=== PATIENT | male | born 1990 | race Caucasian/White ===

== ENCOUNTER 2024-11-15 17:25 | Observation (INO) | payer OTHER ==
[~2024-11-15] VITALS: Ht 170.2 cm; Wt 71.7 kg
[2024-11-15 18:02] LABS: BASOPHILS ABSOLUTE AUTO 0.07 K/mm3 (0.00-0.23); BASOPHILS PERCENT AUTO 1 % (0-2); EOSINOPHILS ABSOLUTE AUTO 0.39 K/mm3 (0.00-0.68); EOSINOPHILS PERCENT AUTO 4 % (0-6); IMMATURE GRAN ABSOLUTE AUTO 0.02 K/mm3 (0.00-0.10); IMMATURE GRAN PERCENT AUTO 0 % (0-1); LYMPHOCYTES ABSOLUTE AUTO 2.97 K/mm3 (0.84-5.20); LYMPHOCYTES PERCENT AUTO 31 % (21-46); MONOCYTES ABSOLUTE AUTO 0.66 K/mm3 (0.16-1.47); MONOCYTES PERCENT AUTO 7 % (4-13); Mean Corpuscular HGB 29.2 pg (26.0-34.0); Mean Corpuscular HGB Conc 34.1 g/dL (31.5-36.5); Mean Corpuscular Volume 85 fL (80-100); Mean Platelet Volume 8.5 fL (9.1-12.4); NEUTROPHILS ABSOLUTE AUTO 5.64 K/mm3 (1.96-9.15); NEUTROPHILS PERCENT AUTO 58 % (41-73); Platelet Count 246 K/mm3 (150-400); RDW Coefficient Variation 12.3 % (11.7-14.2); RDW Standard Deviation 38.6 fL (35.1-46.3); White Blood Cell Count 9.75 K/mm3 (4.00-11.30)
[2024-11-15 18:32] LABS: Ethanol (Alcohol), Blood, Med <3 mg/dL; Free Thyroxine 0.92 ng/dL (0.70-1.60); Salicylate 2.4 mg/dL (2.8-20.0)
[2024-11-15 18:44] LABS: Alanine Aminotransfer (ALT/SGP 21 U/L (12-78); Albumin, Blood 3.7 g/dL (3.4-5.0); Albumin/Globulin Ratio 0.9 (0.8-1.8); Alk Phos 105 U/L (50-136); Anion Gap 8 mmol/L (3-11); Aspartate Aminotrans (AST/SGOT 14 U/L (12-37); Bilirubin, Total 0.2 mg/dL (0.1-1.0); Blood Urea Nitrogen 12 mg/dL (8-24); Bun/Creatinine Ratio 13.9 (12.0-20.0); CO2, Blood 31 mmol/L (21-32); Chloride, Blood 103 mmol/L (98-108); Creatinine, Blood 0.87 mg/dL (0.60-1.20); Globulin, Blood 3.9 g/dL (2.2-4.0); Glomerular Filtration Rate 117 (60-); Glucose, Blood 157 mg/dL (70-99); Potassium, Blood 5.1 mmol/L (3.5-5.5); Sodium, Blood 137 mmol/L (136-145); Total Protein, Blood 7.6 g/dL (6.4-8.2)
[2024-11-15 18:45] LABS: Acetaminophen, Random <2.0 ug/mL (10.0-30.0)
[2024-11-16 11:31] LABS: Source, Urine Clean Catch
[2024-11-16 11:59] LABS: Appearance, Urine Clear (Clear); Bilirubin, Urine Neg (Neg); Blood, Urine Neg (Neg); Color, Urine Yellow (P-Yellow); Glucose Qualitative, Urine Neg (Neg); Ketones, Urine Neg (Neg); Leukocyte Esterase, Urine Neg (Neg); Nitrite, Urine Neg (Neg); Protein, Urine Neg (Neg); Urobilinogen, Urine NORM (Normal)
[2024-11-16 12:33] LABS: U Amphetamine Screen DETECTED; U Barbituate Screen Not Detected; U Benzodiazapine Screen Not Detected; U Buprenorphine Screen Not Detected; U Cannabinoids Screen Not Detected; U Cocaine Screen Not Detected; U Methadone Screen Not Detected; U Methamphetamine Screen DETECTED; U Opiates Screen Not Detected; U Oxycodone Screen Not Detected; U Phencyclidine Screen Not Detected
[2024-11-22 17:27] LABS: AMITRIPTYLINE, QUANT, URN <100 ng/mL; CLOMIPRAMINE QUANT, URN <200 ng/mL; DESIPRAMINE QUANT, URN <100 ng/mL; DOXEPIN QUANT, URN <100 ng/mL; IMIPRAMINE QUANT, URN <100 ng/mL; NORCLOMIPRAMINE QUANT, URN <200 ng/mL; NORDOXEPIN QUANT, URN <100 ng/mL; NORTRIPTYLINE, QUANT, URN <100 ng/mL; PROTRIPTYLINE QUANT, URN <100 ng/mL
== END 2024-11-16 15:19 | disposition other institution (70) ==
LOC: ER 17:25 → EOR 17:26
PROVIDERS: ADMIT Emergency Medicine
DX: F33.2 Major depressive disorder, recurrent severe without psychotic features (principal); R45.851 Suicidal ideations; F11.23 Opioid dependence with withdrawal; Z79.899 Other long term (current) drug therapy
CPT/HCPCS: 80053; 80320; 81003; 84439; 84443; 85025; 99285; G0378; G0480; G0481

== ENCOUNTER 2024-11-16 11:19 | Inpatient (IN) | payer OTHER ==
[~2024-11-16] VITALS: Ht 170.2 cm; Wt 68.5 kg
[2024-11-16] MEDS ORDERED: Haloperidol Lactate Inj. 5 MG/ML Injection IM PRN (12:10)
[2024-11-16] MEDS ORDERED: HydrOXYzine Pamoate 50 MG Cap PO PRN (12:10)
[2024-11-16] MEDS ORDERED: LORazepam 2 MG Tab PO PRN (12:10)
[2024-11-16] MEDS ORDERED: LORazepam 2 MG/ML 1ML Injection IM PRN (12:10)
[2024-11-16] MEDS ORDERED: Ibuprofen 600 MG Tab PO PRN (12:10)
[2024-11-16] MEDS ORDERED: TraZODone HCl 50 MG Tab PO PRN (12:15)
[2024-11-16] MEDS ORDERED: Melatonin 3 MG Tab PO PRN (12:15)
[2024-11-16] MEDS ORDERED: Polyethylene Glycol 3350 17 gm PO PRN (12:15)
[2024-11-16] MEDS ORDERED: OLANZapine ODT 10 MG Tab MM PRN (12:15)
[2024-11-16] MEDS ORDERED: Haloperidol 5 MG Tab PO PRN (12:15)
[2024-11-16] MEDS ORDERED: Ondansetron 4 MG SoluTab MM PRN (12:15)
[2024-11-16] MEDS ORDERED: Aluminum Hydroxide 320MG/5ML 473 ML PO PRN (12:20)
[2024-11-16] MEDS ORDERED: Calcium Carbonate 500 MG Tab Chew PO PRN (12:20)
[2024-11-16] MEDS ORDERED: DiphenhydrAMINE HCl 50 MG/ML 1ML Vial IM PRN (12:20)
[2024-11-16] MEDS ORDERED: DiphenhydrAMINE HCl 50 MG Cap PO PRN (12:20)
[2024-11-16] MEDS ORDERED: Acetaminophen 325 MG TABLET PO PRN (12:20)
[2024-11-16 15:31] VITALS: BP 135/122
[2024-11-16 15:56] VITALS: BP 135/122
--- NOTE | 2024-11-16 18:09 | NUR ---
ADMISSION PT BROUGHT IN FROM ED BY DEMETRI TAYLOR. PT CAME INTO THE ED FOR SUICIDAL IDEATION WITH PLAN TO OD ON FENTANYL. PT REPORTS USING FENTANYL TODAY. HE TRIED TO OD WITHIN THE LAST WEEK BUT REPORTS THAT A FRIEND OF HIS USED NARCAN ON HIM. PT REPORTS CURRENTLY BEING IN WITHDRAWAL AND HE IS DIAPHORETIC AND TIRED. HIS SI STEMS FROM THE MOTHER OF HIS CHILD RECENTLY MOVING TO [place] AND TAKING HIS CHILD WITH HER. THE MOTHER HAS A NEW BOYFRIEND AND WILL NOT LET THE PATIENT HAVE CONTACT WITH HIS DAUGHTER. PT REPORTS REGULARLY USING METH AND FENTANYL AND SAYS THAT THE LACK OF SLEEP IS IMPACTING HIS MENTAL HEALTH WELL. HE REPORTS CURRENT SI BUT WANTS HELP. HE DENIES SI, HI, AND AVTH. HE WAS CHANGED INTO UNIT BASED SCRUBS AND SKIN CHECK DONE WITH HOLLI BAUMANN. HE WAS ORIENTED TO THE UNIT AND SLEPT UNTIL DINNER. PT ATTENDED DINNER AND IS NOW WATCHING A MOVIE WITH HIS PEERS. CONTINUE Q15 ROUNDING FOR SAFETY AND WELLNESS.
[2024-11-16 20:00] VITALS: BP 132/77
--- NOTE | 2024-11-17 05:10 | NUR ---
SHIFT SUMMARY: PATIENT WAS IN BED AT THE BEGINNING OF THE SHIFT. HE AWOKE EASILY AND STATED THAT HE DID WANT TO GET UP FOR SNACK TIME. HE PARTICIPATED IN SNACK AND WRAP UP GROUP AT 1999, ALTHOUGH HE DID NOT STAY FOR LONG. HE WAS COMPLIANT WITH EVENING MEDICATIONS. HE HAD NO ISSUES OR CONCERNS AT THE BEGINNING OF THE SHIFT. HE DENIED SUICIDAL IDEATION OR THOUGHTS OF SELF HARM. HE DID SAY THAT HE WOULD "OVERDOSE ON FENTANYL" IF HE WAS NOT HERE ON THE U. HE BEGAN TO SHOW SIGNS OF DETOXIFICATION ABOUT 2200, WRITHING IN BED AND ROLLING HIMSELF TO THE FLOOR. HE STATED THAT HE HURT "ALL OVER" BUT DID NOT WANT ANYTHING OR ANY HELP. STAFF KEPT A CLOSE EYE ON HIM AND HE APPEARED TO REST MORE EASILY AFTER A FEW HOURS. CONTINUING TO MONITOR FOR SAFETY AND DETOXING WITH Q15 MINUTE CHECKS.
[2024-11-17] MEDS ORDERED: Multivitamins 1 Tab PO SCH (09:00)
[2024-11-17] MEDS ORDERED: Ondansetron 4 MG SoluTab BC PRN (12:40)
[2024-11-17] MEDS ORDERED: Loperamide HCl 2 MG Cap PO PRN (12:45)
[2024-11-17] MEDS ORDERED: Sertraline HCl 50 MG Tab PO SCH (13:00)
--- NOTE | 2024-11-17 16:57 | NUR ---
SHIFT SUMMARY PT A/O X4; PLEASANT AND COOPERATIVE WITH CARE. HE DENIES SI, HI, OR ANY HALLUCINATIONS. SHE CONTINUES TO WITHDRAW FROM FENTANYL WITH COWS ASSESSMENT DONE Q4. COWS ASSESSMENT NOT ABLE TO BE CHARTED IN THE COMPUTER SO IT IS IN THE HARD CHART. PT'S LAST COWS SCORE WAS 9 AT 1400. HE WAS STARTED ON ZOLOFT THIS SHIFT. HE HAS SLEPT A LOT THIS SHIFT BUT DOES COME OUT TO THE DAY ROOM AND SOCIALIZES WITH HIS PEERS.
--- NOTE | 2024-11-17 18:38 | NUR ---
COWS SCORE 6 AT 1800.
[2024-11-17 19:36] VITALS: BP 127/86
[2024-11-17] MEDS ORDERED: CloNIDine 0.1 MG Tab PO SCH (21:00)
--- NOTE | 2024-11-18 04:29 | NUR ---
SHIFT SUMMARY: PATIENT WAS IN HIS ROOM THE ENTIRE SHIFT. HE WAS AWAKE AND MOVING AROUND PAINFULLY AT THE BEGINNING OF THE SHIFT. HIS HEART RATE WAS WNL WERE ALL OF HIS VITAL SIGNS. HE DECLINED OFFER OF SNACK, BUT DID TAKE SOME CHOCOLATE FROM RN AND MHA. HE WAS ABLE TO SETTLE DOWN THE NIGHT WENT ON AND REST WITH EYES CLOSED AND RESPIRATIONS CONFIRMED. HIS COWS AT 2200 WAS 4, BUT HE WAS RESTING AT THAT TIME. AT 0200 HE COULD NOT BE AWAKENED AND HIS COWS WAS 1 WITH ASSESSMENT LIMITED TO WHAT RN COULD VISUALIZE. CONTINUING TO MONITOR FOR SAFETY AND OPIOID WITHDRAWAL WITH Q15 MINUTE CHECKS.
--- NOTE | 2024-11-18 17:42 | NUR ---
SHIFT SUMMARY PT HAS SLEPT MOST ALL OF THE SHIFT. HE WAS UP FOR BKFT, LUNCH AND AFTERNOON SNACK, DID NOT GET UP FOR DINNER. HE DID SPEND A COUPLE OF HOURS IN THE TV ROOM, CURLED UP IN CHAIR AND SLEPT THERE. HIS COWS SCORE AT 1000 WAS 2, 1 AT 1400 AND 1 AT 1800. DENIES SI/HI/AVH, HAS BEEN APPROPRIATE IN THE [place] THROUGHOUT THE DAY, MED COMPLIANT, HAS RECEIVED ONGOING Q15 VISUAL SAFETY CHECKS
[2024-11-18 20:01] VITALS: BP 145/89
--- NOTE | 2024-11-19 04:14 | NUR ---
SHIFT SUMMARY PATIENT IN ROOM SLEEPING AWAKENS TO VERBAL STIMULI. VERBALIZED THAT HE IS "JUST TIRED" DENIES SI, HI, OR AVH. C/O GENERAL ACHINESS MOSTLY IN LOW BACK. MONITORING COWS SCORE Q4HR RANGING FROM 2 WHEN AWAKE TO 0 WHEN SLEEPING. PATIENT REFUSING SNACK TONIGHT. COOPERATIVE WITH MEDICATIONS. CONTINUE TO MONITOR Q15MIN
--- NOTE | 2024-11-19 09:37 | NUR ---
0800 COWS SCORE = 0
--- NOTE | 2024-11-19 18:08 | NUR ---
SHIFT SUMMARY: PT SPENT MOST OF THE DAY IN HIS ROOM RESTING WITH HIS EYES CLOSED. HE DECLINED TO PARTICIPATE IN GROUPS. HE ATTENDED MEALS AND WENT BACK TO HIS ROOM. PT CAME TO THE NURSES STATION AT THE END OF THE SHIFT REQUESTING TO LEAVE AFTER HIS ROOMMATE WAS DISCHARGED. EXLPAINED TO PT THAT HE WILL NEED TO SPEAK WITH THE DOCTOR ABOUT DISCHARGING HOME TOMORROW. PT AGREEABLE TO THIS AND PLANS TO TALK WITH DR. KLEIN TOMORROW.
[2024-11-19 20:00] VITALS: BP 121/77
--- NOTE | 2024-11-20 04:52 | NUR ---
SHIFT SUMMARY PT GUARDED AND CONSTRICTED AFFECT, BUT FRIENDLY AND COOPERATIVE W/ CARE. DENIES SI, HI, AVTH. PT DID NOT WANT TO GO TO SNACK TIME AND LAID IN BED WHOLE SHIFT. TOOK MEDICATIONS. NO ACUTE EVENTS THIS SHIFT.
--- NOTE | 2024-11-20 08:36 | NUR ---
PT IN BED THIS MORNING, DID NOT GO TO BREAKFAST AND STATES HE IS NOT HUNGRY, PT STATES HIS ROOMATE KEPT HIM UP MOST OF THE NIGHT GOING IN AND OUT OF THE ROOM. PT STATES HE IS READY FOR DC, DENIES ANY SI/HI DENIES ANY AH/VH/TH. PT STATES HE PLANS ON CALLING HIS FRIEND WHO HAS POSSESSION OF HIS VEHICLE. PT IS NOT YET READY TO TAKE AM MEDICATIONS, STATES HIS STOMACH IS UPSET AND HE DOESN'T WANT A SNACK.
[2024-11-20] MEDS ORDERED: Sertraline HCl 50 MG Tab PO SCH (09:00)
[2024-11-20 09:05] VITALS: BP 120/85
[2024-11-20] MEDS ORDERED: SERT50 PO (11:15)
--- NOTE | 2024-11-20 11:27 | NUR ---
IMPORTANT DISCHARGE INFORMATION PATIENT REFUSED HOUSING ASSISTANCE VIA THE [facility]. HE WILL BE DISCHARGED BACK TO HIS VEHICLE IN [place]. [facility] WAS CALLLED FOR FOLLOW UP APPOINTMENTS HOWEVER, THEY ARE ALL IN A MEETING UNTILL 1:30. JEWELL IS ENCOURAGED TO USE [facility]S WALK IN SERVICES FOR MEDICAL AND MENTAL HEALTH NEEDS. PHARMACY: [facility] RESOURCES GIVEN FOR: JOB TRAINING PROGRAMS, FOOD PANTRY AND CLOTHING VOUCHERS. [facility] RESOURCES GIVEN FOR HOUSING ASSISTANCE. [facility] OFFENSIVE COORDINATOR: ALIZE JACOBO CALLED ON REQUEST BY PATIENT
--- NOTE | 2024-11-20 12:08 | NUR ---
ALL BELONGINGS RECONCILED WITH PT AND DEDE MOSQUERA, NO DISCREPANCIES NOTED
== END 2024-11-20 11:38 | disposition home or self-care (01) | DRG 885 ==
LOC: BHU 11:19
PROVIDERS: ADMIT Psychiatry & Neurology Psychiatry
DX: F33.2 Major depressive disorder, recurrent severe without psychotic features (principal); R45.851 Suicidal ideations; Z59.00 Homelessness unspecified; F11.23 Opioid dependence with withdrawal; Z79.899 Other long term (current) drug therapy; Z79.1 Long term (current) use of non-steroidal anti-inflammatories (NSAID)
CPT/HCPCS: A9270